=== PATIENT | male | born 1965 | race Caucasian/White ===

== ENCOUNTER 2019-09-27 10:26 | Emergency (ER) | payer OTHER ==
[~2019-09-27] VITALS: Ht 172.7 cm; Wt 77.1 kg
[2019-09-27 10:51] VITALS: BP 143/89
[2019-09-27 10:56] VITALS: BP 143/89
--- NOTE | 2019-09-27 10:56 | NUR ---
PATIENT ARRIVED TODAY WITH CHIEF COMPLAINT OF (R) SHOULDER PAIN. PATIENT STATES HE HAD HAS ROTATOR CUFF REPAIR AND THAT IT "NEVER HEALED CORRECTLY." PATIENT HAS GOOD CMS AND + PULSES TO THE EXTREMITY. SKIN WARM AND DRY. ROM IS ABOUT 30 DEGREES.
[2019-09-27] MEDS ORDERED: TORADOL IM STA (11:00)
[2019-09-27] MEDS ORDERED: TORADOL ONE (11:07)
--- NOTE | 2019-09-27 11:25 | ER.PDOC ---
General Chief Complaint: Extremities Stated Complaint: SHOULDER INJURY Time seen by MD: 11:18 Source: patient Exam Limitations: no limitations History of Present Illness Initial Comments Right shoulder pain for 1 week, denies injury. He has had rotator cuff repair in same shoulder. Occurred: last week Where: home Severity: moderate Exacerbated By: movement of Relieved By: nothing Quality: pain, tenderness Prior symptoms/Treatment: Similar symptoms previous Past Medical History Medical History: no pertinent history Surgical History: shoulder Review of Systems Constitutional: no symptoms reported Respiratory: no symptoms reported Cardiovascular: no symptoms reported Gastrointestinal: no symptoms reported Musculoskeletal: see HPI All Other Systems: Reviewed and Negative Physical Exam General Appearance: alert, no distress Upper Extremity: tenderness (right shoulder), limited ROM (limited abduction) Skin: color nml, warm/dry Vascular: no vascular compromise Neuro/Psych: sensation nml, motor nml Central Exam: oriented X3, CN's nml as tested, nml speech, nml cognition, nml mood/affect Neck/Back: nml inspection Respiratory: no resp distress, breath sounds nml CVS: reg rate & rhythm, heart sounds nml Abdomen: non-tender, no organomegaly, nml bowels sounds Results/Orders Results/Orders Orders - BRIAN ROSSI MD Ketorolac Tromethamine (Toradol) (09/27/19 11:00) Xr Shoulder Rt 2v (09/27/19 11:00) Ketorolac Tromethamine (Toradol) (09/27/19 11:07) Vital Signs Date Time Temp Pulse Resp B/P (MAP) Pulse Ox O2 Delivery O2 Flow Rate FiO2 09/27/19 10:56 98.2 64 18 143/89 (107) 100 Room Air 09/27/19 10:56 98.2 64 18 09/27/19 10:56 98.2 64 18 143/89 (107) 100 Room Air 09/27/19 10:51 98.2 64 18 100 Administered Medications Medications (Trade) Dose Ordered Sig/Skye Route PRN Reason Start Time Stop Time Status Last Admin Dose Admin Ketorolac Tromethamine (Toradol) 60 mg STAT STAT IM 09/27/19 11:00 09/27/19 11:02 DC 09/27/19 11:16 60 MG EKG/XRAY/CT/US XRAY Comments: No acute bony abnormality Departure Time of Disposition: 12:15 Disposition: 01 HOME, SELF-CARE Impression: Primary Impression: Shoulder pain with history of repair of rotator cuff Condition: Stable Additional Instructions: Tramadol Flexeril Medrol dose pack F/U with Dr. Santos next week, call for appointment. Duration or Time Spent with Pa: 30 min BRIAN ROSSI MD September 27, 2019 11:25
--- NOTE | 2019-09-27 12:10 | DIREP ---
PROCEDURE:XRAY SHOULDER MIN 2 VWS-RT COMPARISON:None. INDICATIONS:Pain FINDINGS: BONES:Normal. JOINTS:Severe degenerative joint disease with loss of joint space in the glenohumeral joint, did degenerative cystic change, and osteophyte formation. SOFT TISSUES:Normal. OTHER:Normal. CONCLUSION: 1. Severe degenerative joint disease Dictated by: Gregory Ortega Jr. on 09/27/2019 at 12:09 PM
[2019-09-27 12:24] VITALS: BP 128/80
== END 2019-09-27 12:20 | disposition home or self-care (01) ==
LOC: ER 10:26
DX: M25.511 Pain in right shoulder (principal); Z79.1 Long term (current) use of non-steroidal anti-inflammatories (NSAID); Z87.828 Personal history of other (healed) physical injury and trauma
CPT/HCPCS: 73030; 96372; 99283; J1885